=== PATIENT | male | born 1960 | race Caucasian/White ===

== ENCOUNTER → 2021-05-12 13:44 | Outpatient (BNVA) | payer MEDICARE, SELFPAY | PROVIDERS: PCP Internal Medicine; Visit Provider Internal Medicine | DX: I25.10 Atherosclerotic heart disease of native coronary artery without angina pectoris (principal); E11.8 Type 2 diabetes mellitus with unspecified complications; G47.33 Obstructive sleep apnea (adult) (pediatric); Z95.2 Presence of prosthetic heart valve | CPT/HCPCS: 93005; 99202 ==

== ENCOUNTER → 2021-06-16 12:29 | Outpatient (REF) | payer MEDICARE, SELFPAY ==
--- NOTE | 2021-06-16 12:33 | CA_ITS ---
Transthoracic Echocardiogram Patient (Last, First, Middle): Marquise Wu, Gender: Male Date of : 1960 Age: 60 Procedure Date: 06/16/2021 Procedure Type: Transthoracic Echocardiogram Location: OP Height: 170.18 cm Weight: 99.79 kg BSA: 2.11 m2 Heart Rate: bpm BP: 124 / 50 mmHg Flexible Shaft Winder: YR/CP Referring MD: Live Perez MD Symptoms: Z95.2 - Presence of prosthetic heart valve Study Quality: Fair/Contrast ECG Rhythm: Sinus Conclusions: - The left ventricular systolic function is normal. The calculated ejection fraction is 72% by biplane method. - Evidence suggests grade II (moderate) diastolic dysfunction. - The prosthetic aortic valve appears to be functioning normally. Findings Left Ventricle Normal left ventricular cavity size. There is normal left ventricular wall thickness. The left ventricular systolic function is normal. The calculated ejection fraction is 72% by biplane method. E/E prime ratio is >15, consistent with elevated filling pressures. Evidence suggests grade II (moderate) diastolic dysfunction. Possible hypokinesis inferolateral wall. Right Ventricle Normal right ventricular cavity size and systolic function. Atria Both atria are normal in size. Aortic Valve The prosthetic aortic valve appears to be functioning normally. The aortic valve was not well visualized. The peak aortic velocity is 2.14 m/s with a calculated peak gradient of 18 mmHg. The mean gradient is 8 mmHg. The aortic valve area is 2.04 cm2. There is no aortic valve regurgitation. By history, mechanical aortic valve. Mitral Valve There is mild mitral annular calcification. There is trace mitral valve regurgitation. There is no mitral valve stenosis. Pulmonic Valve The pulmonic valve was not well visualized. Tricuspid Valve Normal tricuspid valve structure. There is no tricuspid valve regurgitation. Tricuspid regurgitation envelope is inadequate for calculation of right ventricular systolic pressure. Great Vessels There is mild dilatation of the ascending aorta measuring 3.80 cm. Venous The inferior vena cava is normal in size and collapses greater than 50% with inspiration. Pericardium/Pleural There is a small loculated pericardial effusion overlying the right atrium. There are no definitive echocardiographic findings of tamponade physiology. Prior Study Comparison No prior study available for comparison. Measurements 2D Linear Measurements IVSd: 1.23 0.6-0.9/0.6-1.0 cm LVIDd: 5.52 3.9-5.3/4.2-5.9 cm LVIDd Index: 2.62 2.4-3.2/2.2-3.1 cm/m2 LVIDs: 4.05 2.0-3.6 cm LVPWd: 1.17 0.7-1.1 cm LA Diam: 4.80 2.7-3.8/3.0-4.0 cm LAIDs Index: 2.27 1.5-2.3 cm/m2 LV Mass: 341.74 67-162/88-224 g LV Mass Index: 161.96 43-95/49-115 g/m2 LVOT Diam: 2.10 3.0+(-)1.3 cm 2D Systolic Function EF 4C: 71.80 >55% EF 2C: 72.50 >55% EF BiP: 72.10 >55% Mitral Valve MV Pk E: 1.22 MV PK A: 0.74 MV Decel Time: 207.00 E/A: 1.70 E'Lateral: 6.74 E'Medial: 3.81 E/E' Med: 32.00 E/E' Lat: 18.10 PHT: 61.00 MVA PHT: 3.61 Decel [place]: 5.88 Aortic Valve AoV Pk Dex: 2.14 AoV Mn Dex: 1.36 AoV VTI: 0.49 AoV Pk Grad: 18.00 Aov Mn Grad: 8.00 ADDIE Cont.VTI: 2.04 LVOT LVOT Pk Dex: 1.04 LVOT Mn Dex: 0.69 LVOT VTI: 0.29 LVOT Pk Grad: 4.00 LVOT Mn Grad: 2.00 LVOT Diam: 2.10 LVOT Area: 3.46 Diastolic Function MV Pk E: 1.22 MV Pk A: 0.74 E/A: 1.70 E'Medial: 3.81 E/E' Med: 32.00 E' Laterial: 6.74 E/E' Lat: 18.10 Right Ventricle TAPSE (mm): 1.37 TVS' Dex: 8.59 Tricuspid Valve RA Press: 8.00 Great Vessels Aorta Ao Asc: 3.80 2.1-3.4 cm Ao Arch: 3.70 Updated in Other Vendor System with Status of Final Live Perez MD electronically signed on 06/16/2021 3:33:15 PM with status of Final
== END ==
LOC: HO.CARD 12:29
PROVIDERS: Visit Provider Internal Medicine
DX: Z95.2 Presence of prosthetic heart valve (principal)
CPT/HCPCS: 93306; Q9957

== ENCOUNTER → 2021-08-10 12:37 | Outpatient (BNVA) | payer MEDICARE, SELFPAY | PROVIDERS: PCP Internal Medicine; Visit Provider Internal Medicine | DX: I25.10 Atherosclerotic heart disease of native coronary artery without angina pectoris (principal); G47.33 Obstructive sleep apnea (adult) (pediatric); E11.8 Type 2 diabetes mellitus with unspecified complications; R60.0 Localized edema; Z95.2 Presence of prosthetic heart valve | CPT/HCPCS: 99212 ==